=== PATIENT | male | born 1950 | race Caucasian/White ===

== ENCOUNTER 2021-09-21 16:45 | Emergency (ER) | payer MEDICARE, OTHER, SELFPAY ==
[2021-09-21] VITALS (13 sets, daily range): BP systolic 116–187; BP diastolic 74–104; PULSE 80–120; RESP 17–28; TEMP 37.3; O2SAT 94–98; BMI 25.1
[2021-09-21] MEDS: ONDANSETRON 4 MG/2 ML INJ (17:24)
--- NOTE | 2021-09-21 18:14 | ED_ITS ---
HPI - Abdominal Pain General Chief Complaint: Abdominal Pain Stated Complaint: ABD PAIN Time Seen by Provider: 09/21/21 18:06 Source: patient Mode of arrival: Family Vehicle Limitations: no limitations History of Present Illness HPI narrative: This is a 71-year-old male who comes to the emergency department with complaint of abdominal pain and nausea and vomiting that has been persistent. Patient has had 10 yea he states that he of abdominal pain he was initially diagnosed with hepatitis-C, he was treated 2 times initially with all treatment and then with the newer treatments his pain never receded but his v iral loads cleared and he has been told that he has been fully treated and no longer has hepatitis-C. He was seen by his primary care physician as he occasionally has episodes of worsening abdominal pain and they had a CT and later HIDA scan which showed dysfunction with an ejection fraction of 19%. Patient saw Dr. Adam the general surgeon at [facility] who did a colonoscopy. Also states that the he was recommended have cholecystectomy but has not done this so far and that Dr. Adam is currently out of town. . Patient states he started having nausea and vomiting on the 16 of September while he was drinking the prep for his colonoscopy. He did fine on the and then started feeling ?achy? and then having nausea and vomiting starting on September 20. He was seen in the emergency department at [facility] September 20 and today, September 21 nausea and vomiting. Patient states he was also diagnosed because of his colonoscopy with C diff and started Flagyl on September 18. He states that around the is when he started feeling nausea and having vomiting again. He had a few doses of Flagyl. He has not started any vancomycin although he had his prescription of Flagyl stopped and was instructed to start with vanco mycin but patient states he has not been able to tolerate orals. All of his workup to this point has been through [facility]. Patient has been afebrile. He had diarrhea September 17 after he had the prep he has not had any additional and had a normal bowel movement yesterday. He states any time he tries to eat or drink about an hour later he will become very nauseated and started throwing up. He has also been having dry heaving intermittently. He has pain on his right upper and left upper quadrant and occasionally pain in the right lower quadrant a but this is less frequent. He denies persistent flank pain. No chest pain or shortness of breath. No passing out but has felt dizzy on times. He has not had any black or bloody stools. He has not had any dysuria, urgency or frequency. He has taken Bentyl in the past but is not on any daily medications. He is at but history of knee surgery. No allergies to drugs. Patient quit tobacco remotely. He has an alcoholic drink once every 2 days. He uses THC intermittently with moderate help to his symptoms. No other illicit. He is accompanied by his . Related Data Previous Rx's Medication Instructions Recorded promethazine 25 mg rectal 25 mg TX Q6H PRN #1 ea 09/21/21 suppository Allergies Allergy/AdvReac Type Severity Reaction Status Date / Time No Known Drug Allergies Allergy Verified 09/21/21 17:04 Review of Systems Review of Systems ROS Unobtainable: All systems reviewed & are unremarkable except as noted in HPI and below Patient History Social History Smoking Status: Former smoker Smoking Status: Former smoker alcohol intake frequency: a few times a week Alcohol type: beer Substance Use Type: marijuana Exam Narrative Exam Narrative: GENERAL: Alert and oriented x three, male in mild to moderate distress. Patient is able to easily get off the bed and stand and show me where his pain is and symptoms. HEENT: Head normocephalic, atraumatic, EOMI, pupils reactive, face symmetric, moist mucous membranes NECK: Supple, full range of motion CARDIOVASCULAR: Regular rate and rhythm without murmurs, rubs or gallops. RESPIRATORY: Breath sounds equal bilaterally, no wheezes rales or rhonchi. No tachypnea or accessory muscle use. ABDOMEN: Soft, mild tenderness right upper and left upper quadrant. Nondistended. Normoactive bowel sounds all 4 quadrants. No guarding or rebound, rigidity, no mass : No CVA tenderness EXTREMITIES: Normal range of motion, no clubbing or edema. Neurovascularly intact NEUROLOGICAL: Cranial nerves II through XII grossly intact. Moving all extremities. Normal gait. SKIN: Warm, dry, no petechiae, no rashes or lesions. 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) Stat Urinalysis and Microscopic Stat 09/21/21 19:40 Blood Culture Stat Discontinued Medications Haloperidol (Haloperidol 5 Mg/Ml Vial) 5 mg IV NOW ONE Stop: 09/21/21 21:07 Last Admin: 09/21/21 21:12 Dose: 5 mg Documented by: KRISTEL Sodium Chloride (Normal Saline 0.9%) 1,000 mls @ 1,000 mls/hr IV BOLUS ONE Stop: 09/21/21 19:49 Last Infusion: 09/21/21 20:55 Dose: 0 mls/hr Documented by: Admin: 09/21/21 19:21 Dose: 1,000 mls/hr Documented by: RANJAN Sodium Chloride (Normal Saline 0.9%) 1,000 mls @ 1,000 mls/hr IV BOLUS ONE Stop: 09/21/21 21:51 Last Infusion: 09/21/21 22:54 Dose: 0 mls/hr Documented by: Admin: 09/21/21 20:55 Dose: 1,000 mls/hr Documented by: KRISTEL Ketorolac Tromethamine (Ketorolac 30 Mg/Ml Vial) 15 mg IV NOW ONE Stop: 09/21/21 22:54 Last Admin: 09/21/21 23:04 Dose: 15 mg Documented by: KRISTEL Lorazepam (Lorazepam 2 Mg/Ml Inj) 0.5 mg IV NOW ONE Stop: 09/21/21 18:38 Last Admin: 09/21/21 18:58 Dose: 0.5 mg Documented by: RANJAN Lorazepam (Lorazepam 2 Mg/Ml Inj) 0.5 mg IV NOW ONE Stop: 09/21/21 22:54 Last Admin: 09/21/21 23:04 Dose: 0.5 mg Documented by: KRISTEL Morphine Sulfate (Morphine 4 Mg/Ml Inj) 4 mg IV NOW ONE Stop: 09/21/21 18:38 Last Admin: 09/21/21 18:58 Dose: 4 mg Documented by: RANJAN Prochlorperazine (Prochlorperazine 25 Mg Supp) 25 mg TX NOW ONE Stop: 09/21/21 22:55 Last Admin: 09/21/21 23:21 Dose: 25 mg Documented by: KRISTEL Consultations Consultation #1: Dr. Gaytan, general surgery. Reviewed patient's labs from today. His prior hospitalization at [facility]. Patient has known biliary issues with a positive HIDA scan with 19% ejection fraction. Count of 14 today with nausea and vomiting and acute on chronic abdominal pain. Patient's abdominal exam is benign. He had a CT abdomen this morning which was negative in 1 the day prior which was negative so this was not repeated. He has continued to have nausea he has had episodes of vomiting but not persistent in the department. He has also had medication for pain. After discussion Dr. Gaytan does not feel that he would be appropriate surgical candidate for his gallbladder is he has a positive C diff test from September 17. Patient was started on Flagyl but has been off the Flagyl since the so is unlikely to be continuing to cause his symptoms. He has narcotic pain medicine at home, he has a new prescription for vancomycin at home. After long discussion patient prefers to try to return home with rectal suppository for nausea and vomiting but we discussed observation. Patient defers at this time but is aware he can return at any time as he has not been tolerating orals well at home and unable to take his oral antibiotic regularly. Vital Signs Vital signs: Vital Signs - 8 hr 09/21/21 19:30 09/21/21 20:04 09/21/21 20:30 Pulse Rate 80 80 92 H Respiratory Rate Blood Pressure 155/93 H Pulse Oximetry 97 95 96 09/21/21 21:00 09/21/21 21:17 09/21/21 21:30 Pulse Rate 83 86 89 Respiratory Rate 23 Blood Pressure 147/85 H 183/95 H Pulse Oximetry 97 98 95 09/21/21 22:00 09/21/21 22:30 09/21/21 22:31 Pulse Rate 86 94 H Respiratory Rate 17 20 Blood Pressure 153/95 H 179/94 H Pulse Oximetry 94 96 MDM - Abdominal Pain Lab Data Result diagrams: 09/21/21 17:29 09/21/21 17:29 Labs: Lab Results 09/21/21 09/21/21 09/21/21 Range/Units 17:29 17:29 17:29 WBC 14.7 H (4.5-11.0) X10^3/uL RBC 5.08 (4.5-5.9) X10^6/uL Hgb 15.0 (13.5-17.5) g/dL Hct 44.4 (41-53) % MCV 87.4 (80-100) fL MCH 29.4 (26-34) PG MCHC 33.7 (30-36) % RDW 13.3 (11.6-14.8) % Plt Count 271 (150-400) X10^3/uL Neut % (Auto) 85.2 H (50-75) % Lymph % (Auto) 8.8 L (25-40) % [place] % (Auto) 5.8 (3-14) % Eos % (Auto) 0.0 L (2-4) % Baso % (Auto) 0.2 (0-2) % Neut # (Auto) 50256 H (9212-5638) /uL Lymph # (Auto) 1300 (8223-0360) /uL [place] # (Auto) 900 (0-900) /uL Eos # (Auto) 0 (0-450) /uL Baso # (Auto) 0 (0-100) /uL Sodium 143 (137-145) mmol/L Potassium 4.1 (3.4-5.1) mmol/L Chloride 109 H (98-107) mmol/L Carbon Dioxide 18 L (22-32) mmol/L BUN 11 (9-20) mg/dL Creatinine 0.74 (0.66-1.25) mg/dL Estimated GFR > 60.0 (>60) mL/min BUN/Creatinine Ratio 14.9 (6-22) Glucose 130 H (80-110) mg/dL Lactate 3.1 H (0.7-2.1) mmol/L Calcium 9.7 (8.4-10.2) mg/dL Total Bilirubin 1.1 (0.2-1.3) mg/dL AST 44 (17-59) IU/L ALT 30 (<50) IU/L Alkaline Phosphatase 63 (38-126) U/L Total Protein 8.4 H (6.3-8.2) g/dL Albumin 4.8 (3.5-5.0) g/dL Globulin 3.6 (1.7-4.1) g/dL Albumin/Globulin Ratio 1.3 (1.0-2.8) Lipase 61 (23-300) U/L Procalcitonin (<0.5) ng/mL Urine Color Urine Appearance Urine pH (4.5-8.0) Ur Specific [place] (1.000-1.035) Urine Protein (Negative) Urine Glucose (UA) (Negative) g/dL Urine Ketones (NEGATIVE) Urine Occult Blood (Negative) Urine Nitrate (Negative) Urine Bilirubin (NEGATIVE) Urine Urobilinogen (0.2) E.U./dL Ur Leukocyte Esterase (NEGATIVE) Urine RBC (0-5/HPF) Urine WBC (0-5/HPF) Ur Squamous Epith Cells (0-5/HPF) Urine Bacteria (None) Ur Culture Indicated? SARS-CoV-2 (PCR) (Negative) 09/21/21 09/21/21 09/21/21 Range/Units 17:29 19:34 19:34 WBC (4.5-11.0) X10^3/uL RBC (4.5-5.9) X10^6/uL Hgb (13.5-17.5) g/dL Hct (41-53) % MCV (80-100) fL MCH (26-34) PG MCHC (30-36) % RDW (11.6-14.8) % Plt Count (150-400) X10^3/uL Neut % (Auto) (50-75) % Lymph % (Auto) (25-40) % [place] % (Auto) (3-14) % Eos % (Auto) (2-4) % Baso % (Auto) (0-2) % Neut # (Auto) (4745-3938) /uL Lymph # (Auto) (8124-4852) /uL [place] # (Auto) (0-900) /uL Eos # (Auto) (0-450) /uL Baso # (Auto) (0-100) /uL Sodium (137-145) mmol/L Potassium (3.4-5.1) mmol/L Chloride (98-107) mmol/L Carbon Dioxide (22-32) mmol/L BUN (9-20) mg/dL Creatinine (0.66-1.25) mg/dL Estimated GFR (>60) mL/min BUN/Creatinine Ratio (6-22) Glucose (80-110) mg/dL Lactate (0.7-2.1) mmol/L Calcium (8.4-10.2) mg/dL Total Bilirubin (0.2-1.3) mg/dL AST (17-59) IU/L ALT (<50) IU/L Alkaline Phosphatase (38-126) U/L Total Protein (6.3-8.2) g/dL Albumin (3.5-5.0) g/dL Globulin (1.7-4.1) g/dL Albumin/Globulin Ratio (1.0-2.8) Lipase (23-300) U/L Procalcitonin 0.15 (<0.5) ng/mL Urine Color Yellow Urine Appearance Clear Urine pH 7.0 (4.5-8.0) Ur Specific [place] 1.015 (1.000-1.035) Urine Protein Negative (Negative) Urine Glucose (UA) Negative (Negative) g/dL Urine Ketones 3+ H (NEGATIVE) Urine Occult Blood 1+ H (Negative) Urine Nitrate Negative (Negative) Urine Bilirubin Negative (NEGATIVE) Urine Urobilinogen 0.2 (0.2) E.U./dL Ur Leukocyte Esterase Trace H (NEGATIVE) Urine RBC 0-1/hpf (0-5/HPF) Urine WBC 0-1/hpf (0-5/HPF) Ur Squamous Epith Cells 0-1 /hpf (0-5/HPF) Urine Bacteria None seen (None) Ur Culture Indicated? Cult not indicated SARS-CoV-2 (PCR) Negative (Negative) 09/21/21 09/21/21 Range/Units 21:00 21:00 WBC (4.5-11.0) X10^3/uL RBC (4.5-5.9) X10^6/uL Hgb (13.5-17.5) g/dL Hct (41-53) % MCV (80-100) fL MCH (26-34) PG MCHC (30-36) % RDW (11.6-14.8) % Plt Count (150-400) X10^3/uL Neut % (Auto) (50-75) % Lymph % (Auto) (25-40) % [place] % (Auto) (3-14) % Eos % (Auto) (2-4) % Baso % (Auto) (0-2) % Neut # (Auto) (7879-2052) /uL Lymph # (Auto) (7847-7646) /uL [place] # (Auto) (0-900) /uL Eos # (Auto) (0-450) /uL Baso # (Auto) (0-100) /uL Sodium (137-145) mmol/L Potassium (3.4-5.1) mmol/L Chloride (98-107) mmol/L Carbon Dioxide (22-32) mmol/L BUN (9-20) mg/dL Creatinine (0.66-1.25) mg/dL Estimated GFR (>60) mL/min BUN/Creatinine Ratio (6-22) Glucose (80-110) mg/dL Lactate Cancelled 1.1 (0.7-2.1) mmol/L Calcium (8.4-10.2) mg/dL Total Bilirubin (0.2-1.3) mg/dL AST (17-59) IU/L ALT (<50) IU/L Alkaline Phosphatase (38-126) U/L Total Protein (6.3-8.2) g/dL Albumin (3.5-5.0) g/dL Globulin (1.7-4.1) g/dL Albumin/Globulin Ratio (1.0-2.8) Lipase (23-300) U/L Procalcitonin (<0.5) ng/mL Urine Color Urine Appearance Urine pH (4.5-8.0) Ur Specific [place] (1.000-1.035) Urine Protein (Negative) Urine Glucose (UA) (Negative) g/dL Urine Ketones (NEGATIVE) Urine Occult Blood (Negative) Urine Nitrate (Negative) Urine Bilirubin (NEGATIVE) Urine Urobilinogen (0.2) E.U./dL Ur Leukocyte Esterase (NEGATIVE) Urine RBC (0-5/HPF) Urine WBC (0-5/HPF) Ur Squamous Epith Cells (0-5/HPF) Urine Bacteria (None) Ur Culture Indicated? SARS-CoV-2 (PCR) (Negative) Imaging Data CT scan - abdomen/pelvis: Radiologist's Impression: Patient had reported CT today but there is a radiology report from 09/20/21 included was small fat containing left inguinal hernia but otherwise negative CT. Patient ER note does note CT from today has negative CT but no report included. Abdominal x-ray: Radiologist's Impression: [address] [address] XRay Report Signed Patient: Robin Spaulding MR#: [id number] : 1950 Acct:[id number] Age/Sex: 71 / M Date of Service: 09/21/21 Loc: ED Accession Number: [id number] ?? Procedure: XR abdomen min 2V Ordering Provider: Pratima Mccoy D.O. PROCEDURE:? XR ABDOMEN MIN 2V ? INDICATIONS:? vomiting, recent Cdiff and + HIDA.? had CT at [facility] today ? TECHNIQUE:? 2 views of the abdomen were acquired.? ? COMPARISON:? CT abdomen pelvis 09/20/2021. ? FINDINGS:? Surgical changes and devices:? None.? ? Bowel:? No pneumoperitoneum.? The bowel gas pattern is normal.? ? Soft tissues:? No suspicious abdominal calcifications.? ? Bones:? No suspicious bony abnormalities.? ? IMPRESSION:? ? 1. No acute intra-abdominal radiographic abnormality.? ? ? Dictated by: Harshil Johnson M.D. on 09/21/2021 at 20:54 ? ? Approved by: Harshil Johnson M.D. on 09/21/2021 at 20:55?? ECG Data Attestation: I personally reviewed and interpreted this ECG as follows: Prior ECG tracings: not available for review Interpretation: Sinus rhythm rate of 72 TX 152 QRS of 66 QTC of [address] elevation. No significant depression. MDM Narrative Medical decision making narrative: Reviewed patient's labs from today.? His prior hospitalization at [facility].? Patient has known biliary issues with a positive HIDA scan with 19% ejection fraction.? Count of 14 today with nausea and vomiting and acute on chronic abdominal pain.? Patient's abdominal exam is benign.? He had a CT abdomen this morning which was negative in 1 the day prior which was negative so this was not repeated.? He has continued to have nausea he has had episodes of vomiting but not persistent in the department.? He has also had medication for pain.? After discussion Dr. Gaytan does not feel that he would be appropriate surgical candidate for his gallbladder is he has a positive C diff test from September 17.? Patient was started on Flagyl but has been off the Flagyl since the so is unlikely to be continuing to cause his symptoms.? He has narcotic pain medicine at home, he has a new prescription for vancomycin at home.? After long discussion patient prefers to try to return home with rectal suppository for nausea and vomiting but we discussed observation and it was offered and hospitalist, Dr. Aguilar was consulted.? Patient defers observa tion at this time but is aware he can return at any time as he has not been tolerating orals well at home and unable to take his oral antibiotic regularly. He is open to rectal antiemetic and prescription was sent. Discharge Plan Departure Patient Disposition: Home Clinical Impression: Vomiting, Clostridium difficile infection Instructions: Antibiotic-associated Colitis -- C difficile Activity Restrictions/Additional Instructions: Your labs today did show an elevation of your lactate which improved after fluids. If you continue to have vomiting, signs of dehydration, worsening symptoms, fevers, passing out, black or bloody stools, difficulty with urination or decreased urine output please return. If you are doing well please follow-up with Dr. Adam for recheck and treatment of your gallbladder disease as well. I did discuss your case with our general surgeon at this time they do not feel appropriate to perform surgery with your history of positive HIDA scan but current C diff infection. Prescription for rectal anti-nausea medication was sent to [facility] in [place]. You can take this medication with the medication prescribed by your physician for pain. Prescriptions: New promethazine 25 mg suppository 25 mg TX Q6H PRN (Reason: nausea and vomiting) Qty: 1 RF: 0 Referrals: Anselmo Solitario MD [Primary Care Provider] - Kinjal Adam MD [Non-Staff] -
--- NOTE | 2021-09-21 18:30 | PC.NURSE ---
Pt sitting on edge of bed, violently dry heaving, coughing, moaning. Partner at bedside consoling him. Pt inconsolable with pain and nausea.
[2021-09-21 18:54] LABS: Add Manual Diff / Slide Review NO; Basophils Absolute Auto 0 /uL (0-100); Basophils Percent Auto 0.2 % (0-2); Eosinophils Absolute Auto 0 /uL (0-450); Hematocrit 44.4 % (41-53); Lymphocytes Absolute Auto 1300 /uL (1100-4500); Lymphocytes Percent Auto 8.8 % (25-40); Mean Corpuscular HGB Conc 33.7 % (30-36); Mean Corpuscular Hemoglobin 29.4 PG (26-34); Mean Corpuscular Volume 87.4 fL (80-100); Monocytes Absolute Auto 900 /uL (0-900); Monocytes Percent Auto 5.8 % (3-14); Neutrophils Absolute Auto 12500 /uL (1500-7000); Neutrophils Percent Auto 85.2 % (50-75); Platelet Count 271 X10^3/uL (150-400); Red Blood Cell Count 5.08 X10^6/uL (4.5-5.9); Red Cell Distribution Width 13.3 % (11.6-14.8); White Blood Cell Count 14.7 X10^3/uL (4.5-11.0)
[2021-09-21] MEDS: MORPHINE 4 MG/ML INJ IV (18:58)
[2021-09-21] MEDS: LORazepam 2 MG/ML INJ 0.5 MG IV ×2 (18:58→23:04)
[2021-09-21 19:00] LABS: Alanine Aminotransferase 30 IU/L (<50); Albumin 4.8 g/dL (3.5-5.0); Albumin Globulin Ratio 1.3 (1.0-2.8); Alkaline Phosphatase 63 U/L (38-126); Aspartate Aminotransferase 44 IU/L (17-59); BUN Creatinine Ratio 14.9 (6-22); Bilirubin Total 1.1 mg/dL (0.2-1.3); Blood Urea Nitrogen 11 mg/dL (9-20); Calcium 9.7 mg/dL (8.4-10.2); Carbon Dioxide 18 mmol/L (22-32); Chloride 109 mmol/L (98-107); Estimated Glomerular Filt Rate > 60.0 mL/min (>60); Globulin 3.6 g/dL (1.7-4.1); Glucose 130 mg/dL (80-110); HEMOLYSIS < 15 (0-50); Lipase 61 U/L (23-300); Potassium 4.1 mmol/L (3.4-5.1); Sodium 143 mmol/L (137-145); Total Protein 8.4 g/dL (6.3-8.2)
[2021-09-21 19:01] LABS: Lactate (Lactic Acid) 3.1 mmol/L (0.7-2.1)
[2021-09-21 19:17] LABS: Procalcitonin 0.15 ng/mL (<0.5)
[2021-09-21] MEDS: SODIUM CHLORIDE 0.9% 1,000 ML 1000 ML IV ×2 (19:21→20:55)
--- NOTE | 2021-09-21 19:28 | DI.RAD.S_ITS ---
PROCEDURE: XR ABDOMEN MIN 2V INDICATIONS: vomiting, recent Cdiff and + HIDA. had CT at [facility] today TECHNIQUE: 2 views of the abdomen were acquired. COMPARISON: CT abdomen pelvis 09/20/2021. FINDINGS: Surgical changes and devices: None. Bowel: No pneumoperitoneum. The bowel gas pattern is normal. Soft tissues: No suspicious abdominal calcifications. Bones: No suspicious bony abnormalities. IMPRESSION: 1. No acute intra-abdominal radiographic abnormality. Dictated by: Harshil Johnson M.D. on 09/21/2021 at 20:54 Approved by: Harshil Johnson M.D. on 09/21/2021 at 20:55
[2021-09-21 19:56] LABS: Appearance Urine UA CLEAR; Bilirubin Urine UA NEGATIVE (NEGATIVE); Color Urine UA YELLOW; Glucose Urine UA NEGATIVE (Negative); Ketones Urine UA 3+ (NEGATIVE); Leukocyte Esterase Urine UA TRACE (NEGATIVE); Nitrite Urine UA NEGATIVE (Negative); Occult Blood Urine UA 1+ (Negative); Protein Urine UA NEGATIVE (Negative); Specific Gravity Urine UA 1.015 (1.000-1.035); Urobilinogen Urine UA 0.2 E.U./dL (0.2)
[2021-09-21 19:58] LABS: Bacteria Urine None Seen; Culture Indicated Urine Cult Not Indicated; RBC Urine 0-1/HPF (0-5/HPF); Squamous Epithelial Cell Urine 0-1 /HPF (0-5/HPF); WBC Urine 0-1/HPF (0-5/HPF)
--- NOTE | 2021-09-21 20:40 | PC.NURSE ---
Pt reports his abd pain is now 5/10 and tolerable.
[2021-09-21 20:50] LABS: Reflexed Lactate in 2 Hours Y
[2021-09-21 21:08] LABS: COVID19 - ADMIT (NP swab/PCR) Negative (Negative)
[2021-09-21] MEDS: HALOPERIDOL 5 MG/ML VIAL IV (21:12)
[2021-09-21 21:28] LABS: Lactate 2HR (Lactic Acid Rflx) 1.1 mmol/L (0.7-2.1)
[2021-09-21] MEDS: KETOROLAC 30 MG/ML VIAL 15 MG IV (23:04)
[2021-09-21] MEDS: PROCHLORPERAZINE 25 MG SUPP PR (23:21)
== END 2021-09-21 23:29 | disposition home or self-care (01) ==
PROVIDERS: Emergency Provider Emergency Medicine; PCP Family Medicine
DX: A04.72 Enterocolitis due to Clostridium difficile, not specified as recurrent (principal); R11.2 Nausea with vomiting, unspecified; R10.9 Unspecified abdominal pain; Z20.822 Contact with and (suspected) exposure to COVID-19
CPT/HCPCS: 36415; 74019; 80053; 81001; 83605; 83690; 84145; 85025; 87040; 87635; 93005; 93010; 96361; 96374; 96375; 96376; 99284; C9803; J1630; J1885; J2060; J2270; J2405

== ENCOUNTER → 2024-09-22 | Outpatient (CLI) | payer MEDICARE, OTHER, SELFPAY ==
--- NOTE | 2024-09-22 17:34 | DI.NM.S_ITS ---
DATE OF SERVICE: 09/22/2024 PROCEDURE: Exercise perfusion study. INDICATIONS: History of bypass surgery in 2021 with episodes of chest pain. RADIOPHARMACEUTICAL: 24.8 mCi technetium-99m Myoview IV was injected at stress and 8.5 mCi technetium-99m Myoview IV was injected at rest. It is one-day study protocol. CARDIAC STRESS: The patient underwent exercise perfusion study under the supervision of an attending staff. He walked on Sang protocol for 6 minutes and 12 seconds, achieved maximum heart rate of 141 which was 96% of target heart rate. Resting blood pressure 136/80 and peak blood pressure 170/90 mmHg. Baseline rhythm sinus. During stress, no convincing ischemic changes or significant arrhythmias seen. No chest pain or anginal symptoms. ADELINE positive 3%. 7 METs of workload. RAW DATA: There is increased subdiaphragmatic activity. GATED STUDY: Stress LV ejection fraction 68% without any obvious wall motion abnormalities. Resting end-diastolic volume 72 mL. TID ratio 0.80, which is within normal limits. MYOCARDIAL PERFUSION SCAN: Stress supine, resting supine, and stress prone images were compared to each other. Stress supine and resting supine images revealed large size, moderate to severely decreased perfusion of inferior wall, which got significantly improved during stress prone images. Stress prone images remained to have minimally decreased perfusion of distal inferior wall. No reversible ischemia. CONCLUSION: I will call this study slightly abnormal myocardial perfusion study with very mild infarction of distal inferior wall; however, this could be a reflection of persistent tissue attenuation artifact. Rest of the inferior wall defect which was seen during resting supine and stress supine images got resolved during stress prone images. Diminished exercise tolerance. Normal hemodynamic response. No obvious ischemic EKG changes. No anginal symptoms. Preserved LV function without any significant wall motion abnormalities. Overall, low-risk exercise perfusion study. Robin Spaulding - PETROS/keagan/[place] doc#: [id number]/job#: [id number] dd: 09/22/2024 16:42:00 dt: 09/22/2024 17:21:00 DICTATING MD/COPIES TO: Kristin Medina MD COPIES MNE: LAUREN;
== END ==
PROVIDERS: PCP Nurse Practitioner; Referring Provider Internal Medicine Cardiovascular Disease; Visit Provider Internal Medicine Cardiovascular Disease
DX: I25.119 Atherosclerotic heart disease of native coronary artery with unspecified angina pectoris (principal)
CPT/HCPCS: 78452; 93017; A9502